=== PATIENT | female | born 1970 | race Caucasian/White ===

== ENCOUNTER 2020-10-15 08:28 | Emergency (ER) | payer BC, OTHER ==
[2020-10-15 08:32] VITALS: BP 155/98; PULSE 90; RESP 18; TEMP 98.3
[2020-10-15] MEDS ORDERED: DIPH,PERTUS(ACELL)TETVAC-LF 0.5 ML VIAL IM ONE (09:11)
[2020-10-15] MEDS ORDERED: DOXYCYCLINE 100 MG CAP PO STA (09:13)
--- NOTE | 2020-10-15 09:21 | ED ---
General Adult HPI - General Chief complaint: Animal Bite Stated complaint: dog scratch Time Seen by Provider: 10/15/20 08:35 Source: patient Mode of arrival: ambulatory Limitations: no limitations - History of Present Illness Initial comments: 50-year-old female presents to the emergency room for treatment of laceration to the nose. Patient was giving her dog a treat. Patient's tooth collided with her nose. Patient states she wanted to make sure she did not need stitches. Patient did clean it with a wet washcloth. Patient states she is not up-to-date on tetanus. Dog is immunized for rabies.Patient has no other complaints at this time including shortness of breath, chest pain, abdominal pain, nausea or vomiting, headache, or visual changes. - Related Data Previous Rx's Medication Instructions Recorded Doxycycline [Vibramycin] 100 mg PO BID 10 Days #20 capsule 10/15/20 Allergies Allergy/AdvReac Type Severity Reaction Status Date / Time Penicillins Allergy Unknown Verified 10/15/20 08:32 ranitidine Allergy Unknown Verified 10/15/20 08:32 Review of Systems ROS Statement: Those systems with pertinent positive or pertinent negative responses have been documented in the HPI. ROS Other: All systems not noted in ROS Statement are negative. Past Medical History Past Medical History: Asthma History of Any Multi-Drug Resistant Organisms: None Reported Past Surgical History: Section, Cholecystectomy Past Psychological History: No Psychological Hx Reported Smoking Status: Never smoker Past Alcohol Use History: None Reported Past Drug Use History: None Reported General Exam Limitations: no limitations General appearance: alert, in no apparent distress Head exam: Present: atraumatic, normocephalic, normal inspection Eye exam: Present: normal appearance, PERRL, EOMI. Absent: scleral icterus, conjunctival injection, periorbital swelling ENT exam: Present: normal exam, mucous membranes moist, other (Patient has a superficial 1.5 cm laceration to the bridge of the nose. No active bleeding.) Neck exam: Present: normal inspection, full ROM. Absent: tenderness, meningismus, lymphadenopathy Respiratory exam: Present: normal lung sounds bilaterally. Absent: respiratory distress, wheezes, rales, rhonchi, stridor Cardiovascular Exam: Present: regular rate, normal rhythm, normal heart sounds. Absent: systolic murmur, diastolic murmur, rubs, gallop, clicks Course Vital Signs 10/15/20 08:29 Temperature 98.3 F Pulse Rate 90 Respiratory 18 Rate Blood Pressure 155/98 O2 Sat by Pulse 99 Oximetry Medical Decision Making - Medical Decision Making Patient has a laceration from a dog tooth on the nose. This is superficial in nature and wound margins are well approximated. I did irrigate thoroughly with saline pressure irrigation. Steri-Strips applied to keep the wound margins approximated. Patient was updated on tetanus. Patient is penicillin ALLERGIC, was started on doxycycline. Discussed monitoring for signs of infection as this is a high risk wound. Discussed returning for any worsening symptoms and otherwise following up with primary care. Disposition Clinical Impression: Dog bite Disposition: HOME SELF-CARE Condition: Good Instructions (If sedation given, give patient instructions): Animal Bite (ED), Steristrips (ED) Additional Instructions: Take antibiotic as directed. Be aware that this can increased sensitivity to sun so make sure to stay covered and out of direct sunlight. Keep Steri-Strips dry as well as he can. Monitor for any signs of infection like swelling and redness drainage or fevers and return if these occur. Return for any other worsening symptoms. Otherwise follow up with primary care in 1-2 days. Prescriptions: Doxycycline [Vibramycin] 100 mg PO BID 10 Days #20 capsule Is patient prescribed a controlled substance at d/c from ED?: No Referrals: Stefan Meneses DO [Primary Care Provider] - 1-2 days Time of Disposition: 09:19
== END 2020-10-15 09:23 | disposition home or self-care (01) ==
LOC: EC 08:28
DX: S01.21XA Laceration without foreign body of nose, initial encounter (principal); J45.909 Unspecified asthma, uncomplicated; Z88.0 Allergy status to penicillin; Z90.49 Acquired absence of other specified parts of digestive tract; Z23 Encounter for immunization; W54.0XXA Bitten by dog, initial encounter
CPT/HCPCS: 90471; 90715; 99283